=== PATIENT | female | born 1940 | race Caucasian/White ===

== ENCOUNTER 2017-05-12 14:58 | Inpatient (IN) | payer MEDICARE ==
[~2017-05-12] VITALS: Ht 165.1 cm; Wt 73.8 kg
[~2017-05-12 14:58] MED LIST: ACET-171 PO; ACET1TAB42 PO; ALBU8.5H2 INHALATION; ASPI-973 PO; ATOR10TA66 PO; BETA15OI4 TP; CALCIT PO; CHOL200047 PO; CLOB50FO8 TP; CYAN100017 SL; DILT120C10 PO; FOLI1TAB18 PO; FURO-129 PO; INFL100V IV; KEN1O TOP; LOSA25TA21 PO; METF500T3 PO; OMEP20CA11 PO; PRE20 PO; TRIA1TAB5 PO; [UNRECOGNIZED DRUG - CODE] SC
[2017-05-12 15:07] VITALS: BP 132/58; PULSE 97; RESP 16; O2SAT 98
--- NOTE | 2017-05-12 15:22 | ED.REPORT ---
HPI-Abd Pain F 40 and Over Date of Service May 12, 2017 ED Provider: Dr. Gibson Pt is a 77 y/o female w/ a hx of a-fib, NIDDM, HTN, GERD, hernia s/p repair, presenting to the ED c/o sharp gradually worsening mid-abdominal pain onset yesterday. She c/o associated nausea, vomiting x1 episode. Pt denies bloody/ tarry stool, hematemesis, fever, chills, CP, SOB, cough, dysuria. She has not passed gas or had a bowel movement today. She has had a periumbilical hernia repair previously. Nursing Notes Stated Complaint: UPPER ABDOMINAL PAIN Chief Complaint: Female Abdominal Pain Nursing Notes Reviewed: Yes Allergies: Coded Allergies: atenolol (Verified Allergy, Intermediate, TROUBLE BREATHING, 08/21/16) Penicillins (Verified Allergy, Mild, CAN NOT TAKE DUE TO CURRENT MED, ) lisinopril (Verified Allergy, Unknown, UNKNOWN, 08/21/16) Uncoded Allergies: SULFA (Allergy, Mild, CAN NOT TAKE DUE TO CURRENT MED., 07/28/14) Scheduled Albuterol HFA (Proair HFA) 8.5 Gm Hfa.aer.ad 2 PUFFS INHALATION Q4H Aspirin (Aspirin) 81 Mg Tablet 81 MG PO DAILY Atorvastatin Calcium (Atorvastatin Calcium) 10 Mg Tablet 10 MG PO QPM Calcium Citrate (Calcium Citrate) 250 Mg Tablet 500 MG PO BID Cholecalciferol (Vitamin D3) (Vitamin D3) 2,000 Unit Capsule 2,000 UNIT PO DAILY Cyanocobalamin (Vitamin B-12) (Vitamin B-12) 1,000 Mcg Tab.subl 1,000 MCG SL DAILY Diltiazem ER (Diltiazem ER) 120 Mg Cap.er.12h 120 MG PO BID Folic Acid (Folic Acid) 1 Mg Tablet 1 MG PO DAILY Infliximab (Remicade) 10 Mg/Ml Sdv 100 MG IV q8w Losartan Potassium (Losartan Potassium) 25 Mg Tablet 25 MG PO DAILY Metformin ER (Glucophage XR) 500 Mg Tablet 500 MG PO BID Omeprazole (Omeprazole) 20 Mg Capsule. 20 MG PO DAILY Prednisone (PredniSONE) 20 Mg Tablet 40 MG PO DAILY TAPER Prednisone (PredniSONE) 20 Mg Tablet 20 MG PO PRN Triamcinolone Acet (Triamcinolone Acetonide Ointment) 1 Applic/0.25 Gm Oint 60 APPLIC TOP BID Triamterene/HCTZ 75-50 mg (Triamterene/HCTZ 75-50 mg) 1 Each Tablet 1 EACH PO DAILY Scheduled PRN Acetaminophen (Acetaminophen) 500 Mg Tablet 500 MG PO Q6H PRN PRN For Pain Acetaminophen/Codeine 300-30mg (Acetaminophen/Codeine 300-30mg) 1 Each Tablet 1 TABLET PO BID PRN PRN Pain Betamethasone/Propylene Glyc (Betamethasone Dp Aug 0.05% Oin) 15 Gm Oint...g. 15 GM TP DIRECTED PRN PRN skin Clobetasol Propionate/Emoll (Clobetasol Emollnt 0.05% Foam) 50 Gm Foam 50 GM TP BID PRN PRN skin Furosemide (Lasix) 20 Mg Tablet 20 MG PO DAILY PRN PRN edema General Time Seen by MD: 15:21 Chief Complaint Abdominal pain Hx Obtained From: Patient, EMS Arrived By: Ambulance Sudden in Onset?: No Onset Occurred: Yesterday Symptom Duration: Since onset Progression since Onset: Constant Location: : Periumbilical Quality: Painful, Sharp Severity: Current: Moderate Severity: Maximum: Moderate Similar Sx Previous: No Past Medical History Past Medical History RA interstitial lung disease Anemia AVMs Hx of incarcerated incisional hernia s/p repair Atrial fibrillation GERD NIDDM Hypertension Past Surgical History Hernia repair Reports: Hysterectomy Smoking History Former Smoker Social History Alcohol Use: Denies alcohol use Ambulatory Status Independent Review of Systems Constitutional: Denies: Chills, Fever Respiratory: Denies: Non-productive cough, Shortness of breath Cardiovascular: Denies: Chest pain GI: Reports: Abdominal pain, Nausea, Vomiting, Denies: Bloody/tarry stool, Diarrhea, Hematemesis, Melena Female: Denies: Dysuria, Urinary frequency Complete sys rev & neg: except as marked. Physical Exam Vital Signs Vital Signs (First) Date Time Temp Pulse Resp B/P Pulse Ox O2 Delivery O2 Flow Rate FiO2 05/12/17 15:07 36.7 97 16 132/58 98 Room Air Initial VS: Reviewed, Vital signs normal Head / Eyes: Atraumatic, Normocephalic ENT: Mucous membranes moist, Conjunctiva normal Neck: Supple, Full range of motion Extremities: Vascular intact, Neuro intact Skin: Warm, Dry, No cyanosis Neurologic: Alert, Oriented, Nonfocal Psychiatric: Mood/affect normal, Behavior normal, Normal thought content General/Constitutional: Awake, Alert, No acute distress, Cooperative, Not toxic appearing Respiratory / Chest: Breath sounds NL, Breath sounds = bilat, No respiratory distress, No rales, No rhonchi, No wheezing Cardiovascular: Regular rhythm, Heart sounds NL, No murmurs, Peripheral circulation NL, Pulses = bilaterally Heart Rate / Rhythm: Positive: Tachycardia Periph CV / BP Differential: Positive: Peripheral pulses 2+ Abdomen: Atraumatic, Soft, No guarding, No rebound, No distention Bowel Sounds / Distention: Positive: Distention mild Moderately tender between epigastrium and umbilical region Back: Full range of motion, Painless range of motion Interpretation & Diagnostics Lab Results Interpretation Result Diagram: 05/12/17 1535 05/12/17 1535 Test 05/12/17 15:35 05/12/17 17:41 White Blood Count 7.4th/mm3 (3.8-10.1) Red Blood Count 3.38mil/mm3 (3.90-5.20) Hemoglobin 10.3g/dL (12.0-15.6) Hematocrit 31.9% (35.0-46.0) Mean Corpuscular Volume 94.4fL (81-100) Mean Corpuscular Hemoglobin 30.5pg (27.0-35.0) Mean Corpuscular Hemoglobin Concent 32.3% (32.0-37.0) Red Cell Distribution Width 16.3% (12.3-15.4) Platelet Count 202bil/L (150-400) Neutrophils (%) (Auto) 75.8% (40-74) Lymphocytes (%) (Auto) 9.5% (14-46) Monocytes (%) (Auto) 13.0% (4-12) Eosinophils (%) (Auto) 0.7% (0-5) Basophils (%) (Auto) 0.1% (0-3) Sodium Level 139mEq/L (134-144) Potassium Level 4.3mEq/L (3.5-5.2) Chloride Level 100mEq/L (97-108) Carbon Dioxide Level 22mmol/L (18-29) Blood Urea Nitrogen 44mg/dL (8-27) Creatinine 1.40mg/dL (0.57-1.00) Estimat Glomerular Filtration Rate 52mL/min (>59) Glucose Level 207mg/dL (60-99) Lactic Acid Level 1.5mmol/L (0.4-2.0) Calcium Level 9.5mg/dL (8.5-10.1) Magnesium Level 1.5mg/dL (1.6-2.6) Total Bilirubin 0.4mg/dL (0.0-1.2) Aspartate Amino Transf (AST/SGOT) 12U/L (0-50) Alanine Aminotransferase (ALT/SGPT) 10U/L (0-32) Alkaline Phosphatase 53U/L (25-165) Total Protein 7.1g/dL (6.4-8.4) Albumin 3.8g/dL (3.4-5.0) Lipase 30U/L (13-60) Hold Patel Top Tube Received (Received) Hold Urine Received (Received) CT Abd / Pelvis Interpretation IMPRESSION: High-grade small bowel obstruction pattern, with fluid in gas distention of the small bowel above the lower mid pelvis to up to 4.6 cm in diameter with a small amount of reactive free fluid in the perihepatic space and paracolic gutters, but no free air. The absence of an identifiable source of this obstruction statistically indicates either acquired or congenital adhesion as the underlying cause. Specifically, no small bowel mass, intussusception or volvulus is found. Given the extent of disease present surgical consultation likely is warranted at this time. 2 moderately large gallstones within the gallbladder lumen but no sign of obstruction of the bile ducts or inflammation of the gallbladder wall. Dictated by: Héctor Whitehead M.D. on 05/12/2017 at 17:15 Approved by: Héctor Whitehead M.D. on 05/12/2017 at 17:21 Study type: Abdominal CT IV contrast Interpretation / Wet Read by: Interpret - Radiologist Re-Eval/Medical Decision Med Decision/Clinical Course Small bowel obstruction. Will be admitted. Re-Evaluation/Progress : Time of Eval: 17:27 Re-Evaluation/Progress Note: Pt rechecked. Informed pt of need for admission due to SBO. Pt understands and agrees with plan for admission. All questions addressed. Consultation #1: Referral / Consult Name: Nile Awad MD Consulted With: Surgeon Call Returned at: 17:48 Rental Manager: Agrees with eval, Agrees with plan Note: Will consult during admission. Consultation #2: Referral / Consult Name: Lucero Sethi MD Consulted With: Hospitalist Call Returned at: 17:50 Rental Manager: Will see patient, Agrees with eval, Agrees with plan, Accepts admit Counseled Regarding: Diagnosis, Lab results, Need for admission Discharge & Departure Primary Impression: SBO (small bowel obstruction) Additional Impression: Cholelithiasis Cholelithiasis location: gallbladder Cholecystitis presence: without cholecystitis Biliary obstruction: without biliary obstruction Qualified Code : K80.20 - Calculus of gallbladder without cholecystitis without obstruction Disposition: ADMITTED TO HOSPITAL Discharge Condition All VS Reviewed: Yes Condition: Stable Referrals: Catrachita Oropeza (PCP) Scribe Attestation Portions of this note were transcribed by Devyn Bragg. I, Dr. Gibson, personally performed the history, physical exam and medical decision-making; I reviewed and confirmed the accuracy of the information in the transcribed note. copies to: Catrachita Oropeza Timothy S DO May 12, 2017 15:22 DEVYN BRAGG May 12, 2017 15:31
[2017-05-12 15:43] LABS: BASOPHILS % (AUTO) 0.1 % (0-3); EOSINOPHILS % (AUTO) 0.7 % (0-5); Mean Corpuscular Hemoglobin 30.5 pg (27.0-35.0); Mean Corpuscular Volume 94.4 fL (81-100); NEUTROPHILS % (AUTO) 75.8 % (40-74); Platelet Count 202 bil/L (150-400)
[2017-05-12] MEDS ORDERED: 0.9% Sodium Chloride 500 ML IV ONE (15:45)
[2017-05-12] MEDS ORDERED: Ondansetron 2 mg/mL 2 mL Inj IVPUSH PRN ×2 (15:45→17:45)
[2017-05-12 16:07] LABS: Magnesium 1.5 mg/dL (1.6-2.6)
--- NOTE | 2017-05-12 17:22 | DRSVH ---
PROCEDURE: CT ABDOMEN AND PELVIS WITH CONTRAST ([id number]) INDICATIONS: abd pain vomiting TECHNIQUE: After the administration of intravenous contrast, 5 mm thick sections acquired from the diaphragm to the symphysis. 5 mm coronal and sagittal reformats were acquired. For radiation dose reduction, the following was used: automated exposure control, adjustment of mA and/or kV according to patient siz e. COMPARISON: None. FINDINGS: Image quality: Excellent. ABDOMEN: Lung bases: Lung bases are abnormal, with a mild degree of fibrotic change and mild medial lung base bilateral traction bronchiectasis. Heart size is normal. Solid organs: Liver and spleen are normal in size and enhancement. There is mild perihepatic free f luid is seen anteriorly, superiorly Gallbladder contains at least 2 moderate size gallstones that are peripherally calcified and measure up to 1.4 cm in dimension. Biliary system is non dilated. Pancr eas enhances normally. No adrenal nodules. Kidneys demonstrate normal size and enhancement, without hydronephrosis. Peritoneum and bowel: Small bowel loops demonstrate mildly increased wall thickness and distended trina iber measuring up to 4.6 cm in maximal transverse dimension and this is best seen over the left mid t o lower abdomen and extending into the pelvis. No free air. Nodes and vessels: No retroperitoneal or mesenteric adenopathy by size criteria. Aorta and inferior vena cava are normal in size. Miscellaneous: No ventral hernias. PELVIS: Genitourinary: Bladder wall thickness is normal. Miscellaneous: No inguinal hernias or adenopathy. At the right lower quadrant there are small bowel loops that are collapsed, in contrast to the moderately distended small bowel loops more superiorly and in the left lower quadrant. There is feculent transformation of content within the distended dis josh small bowel at the midline of the lower pelvis. Beyond this area the pelvis portion of the small bowel appears collapsed. Bones: No suspicious bony lesions. No vertebral body compression fractures. IMPRESSION: High-grade small bowel obstruction pattern, with fluid in gas distention of the small bow el above the lower mid pelvis to up to 4.6 cm in diameter with a small amount of reactive free fluid in the perihepatic space and paracolic gutters, but no free air. The absence of an identifiable sour ce of this obstruction statistically indicates either acquired or congenital adhesion as the underlyi ng cause. Specifically, no small bowel mass, intussusception or volvulus is found. Given the extent of disease present surgical consultation likely is warranted at this time. 2 moderately large gallstones within the gallbladder lumen but no sign of obstruction of the bile mojgan ts or inflammation of the gallbladder wall. Dictated by: Héctor Whitehead M.D. on 05/12/2017 at 17:15 Approved by: Héctor Whitehead M.D. on 05/12/2017 at 17:21
[2017-05-12] MEDS ORDERED: 0.9% Sodium Chloride 1,000 ML IV SCH ×2 (17:40→20:45)
[2017-05-12] MEDS ORDERED: Alum-Mag Hydrox-Simeth 30 mL Suspension PO PRN (17:45)
[2017-05-12] MEDS ORDERED: Polyethylene Glycol (PEG) 17 Gm Powder PO PRN (17:45)
[2017-05-12 19:03] VITALS: BP 129/56; PULSE 102; RESP 16; O2SAT 98
--- NOTE | 2017-05-12 19:35 | NUR ---
Arrival to [facility] room 1007 at 1935
[2017-05-12 19:40] VITALS: BP 136/76; PULSE 99; RESP 16; O2SAT 95
[2017-05-12] MEDS ORDERED: Famotidine Inj 20 MG in IV Premix 1 EACH IV SCH (20:30)
[2017-05-12] MEDS ORDERED: Magnesium Sulf 2 Gm/50mL Water 2 GM in IV Premix 1 EACH IV ONE (20:45)
--- NOTE | 2017-05-12 21:35 | PCM.HPMED ---
Subjective Date of Service May 12, 2017 Primary Provider: Admitting Physician: Primary Care Physician: Catrachita Oropeza Attending Physician: Chief Complaint: Abdominal pain. History of Present Illness: Ms. Lily Nicole is a very pleasant 77 year old lady with past medical history of atrial fibrillation, Non insulin using diabetes, hypertension, Lichen planus , rheumatoid arthritis, GERD, umbilical hernia repair (2014), who presents to the [facility] Emergency Department with abdominal pain, onset roughly noon day before (05/11/17). 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 Shortly thereafter she experienced nausea and vomited, what appeared to be her meal from the night before. Since then she has intermittent sharp 10/10 abdominal pain, roughly over her epigastric area. She notes that movement and certain positions aggravate her pain. She has not passed gas since early AM 05/11/17. She denies fever, chills, syncope, chest pain, shortness of breath, dysuria, hematemesis, hematochezia, hematuria. OF note she reports starting Azithioprine about 3 weeks ago, and was told constipation was a side effect. In the ED patients vitals: T-36.7, HR-97, RR-16, BP-132/58, 98%RA. CT - IMPRESSION: High-grade small bowel obstruction pattern, with fluid in gas distention of the small bowel above the lower mid pelvis to up to 4.6 cm in diameter with a small amount of reactive free fluid in the perihepatic space and paracolic gutters, but no free air. The absence of an identifiable source of this obstruction statistically indicates either acquired or congenital adhesion as the underlying cause. Specifically, no small bowel mass, intussusception or volvulus is found. 2 moderately large gallstones within the gallbladder lumen but no sign of obstruction of the bile ducts or inflammation of the gallbladder wall. In the ED patient received: IV morphine, NS fluids, zofran. Dr. Awad with surgery was consulted. NG tube placed. Review of Systems: A comprehensive review of systems was conducted with the patient and found to be negative except as above in the History of Present Illness. Allergies Coded Allergies: atenolol (Verified Allergy, Intermediate, TROUBLE BREATHING, 08/21/16) Penicillins (Verified Allergy, Mild, CAN NOT TAKE DUE TO CURRENT MED, ) lisinopril (Verified Allergy, Unknown, UNKNOWN, 08/21/16) Uncoded Allergies: SULFA (Allergy, Mild, CAN NOT TAKE DUE TO CURRENT MED., 07/28/14) Home Medications Scheduled Albuterol HFA (Proair HFA) 8.5 Gm Hfa.aer.ad 2 PUFFS INHALATION Q4H Aspirin (Aspirin) 81 Mg Tablet 81 MG PO DAILY Atorvastatin Calcium (Atorvastatin Calcium) 10 Mg Tablet 10 MG PO QPM Calcium Citrate (Calcium Citrate) 250 Mg Tablet 500 MG PO BID Cholecalciferol (Vitamin D3) (Vitamin D3) 2,000 Unit Capsule 2,000 UNIT PO DAILY Cyanocobalamin (Vitamin B-12) (Vitamin B-12) 1,000 Mcg Tab.subl 1,000 MCG SL DAILY Diltiazem ER (Diltiazem ER) 120 Mg Cap.er.12h 120 MG PO BID Folic Acid (Folic Acid) 1 Mg Tablet 1 MG PO DAILY Infliximab (Remicade) 10 Mg/Ml Sdv 100 MG IV q8w Losartan Potassium (Losartan Potassium) 25 Mg Tablet 25 MG PO DAILY Metformin ER (Glucophage XR) 500 Mg Tablet 500 MG PO BID Omeprazole (Omeprazole) 20 Mg Capsule.dr 20 MG PO DAILY Prednisone (PredniSONE) 20 Mg Tablet 40 MG PO DAILY TAPER Prednisone (PredniSONE) 20 Mg Tablet 20 MG PO PRN Triamcinolone Acet (Triamcinolone Acetonide Ointment) 1 Applic/0.25 Gm Oint 60 APPLIC TOP BID Triamterene/HCTZ 75-50 mg (Triamterene/HCTZ 75-50 mg) 1 Each Tablet 1 EACH PO DAILY Scheduled PRN Acetaminophen (Acetaminophen) 500 Mg Tablet 500 MG PO Q6H PRN PRN For Pain Acetaminophen/Codeine 300-30mg (Acetaminophen/Codeine 300-30mg) 1 Each Tablet 1 TABLET PO BID PRN PRN Pain Betamethasone/Propylene Glyc (Betamethasone Dp Aug 0.05% Oin) 15 Gm Oint...g. 15 GM TP DIRECTED PRN PRN skin Clobetasol Propionate/Emoll (Clobetasol Emollnt 0.05% Foam) 50 Gm Foam 50 GM TP BID PRN PRN skin Furosemide (Lasix) 20 Mg Tablet 20 MG PO DAILY PRN PRN edema PMH RA interstitial lung disease Anemia AVMs Hx of incarcerated incisional hernia s/p repair Atrial fibrillation GERD NIDDM Hypertension Surgical History Hernia repair 2015 Hysterectomy 1975 Oophorectomy ~ 1981 Family History Mother - Rheumatoid Arthritis Social History Hx Alcohol Use: No Hx Substance Use: No Hx Tobacco Use: Yes Smoking Status: Former Smoker Exam Vital Signs Vital Sign - Last Date Time Temp Pulse Resp B/P Pulse Ox O2 Delivery O2 Flow Rate FiO2 05/12/17 15:07 36.7 97 16 132/58 98 Room Air Exam General: Elderly lady sitting in bed in no acute distress, well-developed, well- nourished, appropriately interactive HEENT: Normocephalic, atraumatic. External ears without defect. Pupils equal, round, and reactive to light and accommodation. Anicteric sclerae, moist conjunctivae, and no lid lag. Oropharynx free of erythema and cobble stoning with moist mucosa. Neck: Supple with full range of motion. No jugular venous distension. No bruits. No lymphadenopathy or thyromegaly. Cardiovascular: Regular rate and rhythm with no rubs, or gallops appreciated. 2- 3/6 moderate holosystolic murmur present. Pulmonary: Clear to auscultation bilaterally with no crackles, wheezes, or rhonchi. Normal respiratory effort with no use of accessory muscles. Abdomen: Bowel tones present. Soft, mildly tender to palpation. nondistended. No hepatosplenomegaly or masses appreciated. Extremities: No clubbing, cyanosis, edema, or lymphadenopathy appreciated. Skin: Normal temperature, turgor, and texture; various lichen planus present, ulcers, or subcutaneous nodules appreciated. Neurological: Cranial nerves grossly intact. Normal muscle strength, tone, and bulk. Reflexes, coordination, and sensory function within normal limits. No known gait impairment. Psychiatric: Normal mood and affect. Alert and oriented to person, place, and time. Lab and Diagnostics Result Diagram: 05/12/17 1535 05/12/17 1535 X-Rays, CTs and MRIs CT ABDOMEN AND PELVIS WITH CONTRAST IMPRESSION: High-grade small bowel obstruction pattern, with fluid in gas distention of the small bowel above the lower mid pelvis to up to 4.6 cm in diameter with a small amount of reactive free fluid in the perihepatic space and paracolic gutters, but no free air. The absence of an identifiable source of this obstruction statistically indicates either acquired or congenital adhesion as the underlying cause. Specifically, no small bowel mass, intussusception or volvulus is found. Given the extent of disease present surgical consultation likely is warranted at this time. 2 moderately large gallstones within the gallbladder lumen but no sign of obstruction of the bile ducts or inflammation of the gallbladder wall. Approved by: Héctor Whitehead M.D. on 05/12/2017 at 17:21 Assessment & Plan Ms. Lily Nicole is a very pleasant 77 year old lady with past medical history of atrial fibrillation, Non insulin using diabetes, hypertension, Lichen planus , rheumatoid arthritis, Interstitial lung, disease,GERD, umbilical hernia repair (2014), who presents to the [facility] Emergency Department with abdominal pain, onset roughly noon day before (05/11/17). CT shows high grade SBO. NG tube placed, surgery consulted. Converting PO meds to IV where appropriate. High Grade Small Bowel Obstruction. Present on admission. Active. - Likely 2nd to adhesion from prior surgery. - CT abdomen as above. - NG tube in place. - IV morphine and Zofran PRN. - NPO. - IV fluids NS @ 75 ml/hr. - GI prophylaxis with Famotidine. - Dr. Awad with Surgery consulted. Chronic conditions. Rheumatoid Arthritis - Continue home Prednisone 20 mg daily. IV Solu-Medrol substitute daily (16mg). - Remicade is q8W med. Not due at this time. History of Atrial Fibrillation, not on anticoagulation. Not present on admission. Active. - On home ASA, Will continue. - Continue home Diltiazem ER 120 mg BID when appropriate. - Tele ordered. Hypertension. - Continue home Losartan 25 mg Daily when appropriate. - Continue home Triamterene/HCTZ 75/50 mg 1 each daily when appropriate. - Continue home Furosemide 20 mg Daily when appropriate. Non Insulin Using Diabetes. - Holding home metformin 500 mg BID. Hyperlipidemia - Continue home Atorvastatin 10 mg PO HS when appropriate. GERD. - Holding home omeprazole 20 mg daily. Acetaminophen for mild pain when necessary. Bowel regimen Senna and MiraLAX scheduled and PRN. Zofran when necessary for nausea and vomiting. SubQ heparin held for now. SCDs in place. Social: Lives alone at [facility]. 3 Adult children live in the [facility] area. Ambulates without assistance. Full Code. High-risk medications: IV Morphine. Patient Status: Patient is admitted under inpatient status with expected length of stay greater than 2 midnights due to severity of presenting symptoms, risk of adverse event, and complexity of treatment plan. Pain Evaluation: Adequate Pain Control Resuscitation Status: CPR: Attempt Resuscitation CHICHO COPE DO May 12, 2017 17:53
[2017-05-12] MEDS ORDERED: Diltiazem 5 mg/mL 5 mL Inj IVPUSH PRN (22:50)
[2017-05-12] MEDS ORDERED: Labetalol 5 mg/mL 20 mL Inj IVPUSH PRN (22:55)
[2017-05-12 23:21] VITALS: PULSE 89
[2017-05-13 00:40] VITALS: BP 159/81; PULSE 88; RESP 18; O2SAT 98
--- NOTE | 2017-05-13 02:44 | CONS ---
[address] [id number] CONSULTATION REPORT PATIENT: SUDHEER TOLENTINO : 1940 MR#: [id number] ADMIT: 05/12/2017 JOB ID: [id number] DATE OF SERVICE: 05/12/2017 IDENTIFICATION AND CHIEF COMPLAINT: I have been asked to consult on this 77-year-old woman with a small bowel obstruction. HISTORY OF PRESENT ILLNESS: The patient presented to the emergency department with progressively worsening abdominal pain x24 hours. She has had associated nausea and vomiting, has not passed gas today, and has not had a bowel movement for 2-3 days. PAST SURGICAL HISTORY: Includes periumbilical hernia, as well as a hysterectomy and oophorectomy in the distant past. She has never had a previous small bowel obstruction. She did have extensive workup for GI blood loss in 2015 that was attributed to AV malformations and underwent photoablation. PAST MEDICAL HISTORY: 1. Atrial fibrillation. 2. Hypertension. 3. Rheumatoid arthritis. 4. GERD. 5. Interstitial lung disease. 6. Nbr-ymakyaq-quwwuthzj diabetes. MEDICATIONS: Per med list, they include: 1. Diltiazem for rate control. 2. Aspirin. 3. Prednisone, on taper. 4. Remicade. 5. Losartan. 6. No anticoagulation other than aspirin. ALLERGIES: 1. ATENOLOL 2. PENICILLINS. 3. LISINOPRIL. SOCIAL HISTORY: , ex-smoker, negative daily alcohol, lives alone, but does have adult children. FAMILY HISTORY: Noncontributory. REVIEW OF SYSTEMS: Per admission history and physical. PHYSICAL EXAMINATION: A slender woman in no acute distress. Vital signs show that she is afebrile. Pulse is in the high 90s. Blood pressure is within normal limits. Sclerae are clear. Neck: Supple. Lungs: Clear. Heart sounds are irregularly irregular. Her abdomen is soft, nontender, though a bit tympanitic and does have high-pitched bowel sounds with a few rushes and tinkles, but there are no groin hernias. There are no incisional hernias. Extremities without edema. LABORATORIES: Show white count of 7.4, hematocrit 32. Normal chemistries. Creatinine mildly elevated at 1.4. Glucose is mildly elevated at 207. Lactic acid is 1.5. LFTs and lipase are normal. IMAGING: I have reviewed her CAT scan, both the report and the films. I concur that she has at least two large gallstones in the gallbladder that appear asymptomatic and what appears to be a high-grade small bowel obstruction. IMPRESSION AND PLAN: A 77-year-old woman with moderate medical comorbidities who presents with bowel obstruction, likely adhesive disease. She is having a nasogastric tube placed immediately prior to me evaluating her. I do not think there is any indication for urgent surgery. We discussed natural history of bowel obstruction and my recommendation is for nasogastric tube decompression overnight and followup abdominal films in the morning. Depending on how she appears clinically in the morning, I may recommend surgical intervention.
--- NOTE | 2017-05-13 04:37 | NUR ---
Nurse Note NOC Shift Patient alert and oriented x4, able to communicate needs, denies feeling dizzy, gait steady. She denies SOB, chest pain or nausea but c/o mild abdominal tenderness which was tolerable to pt without medication. Pt is on continuos NG suction, clear drainage suctioned but later drainage with some blood. Pt reports she usually has some bleed on the tongue and tends to swallow the blood. MD notified of the blood tinged drainage, new lab orders obtained. No significant increase of bloody suctioned contents during the shift. Pt reports that she passed gas tonight; bowel tones positive. Pt received Mgso4 to replace mg, tolerated well. She is able to ambulate to the bathroom with standby assist.
[2017-05-13 06:10] VITALS: BP 167/74; PULSE 80; RESP 16; O2SAT 98
--- NOTE | 2017-05-13 06:21 | NUR ---
Xray Pt off unit for abdominal x ray
[2017-05-13 07:41] LABS: BASOPHILS % (AUTO) 0.2 % (0-3); EOSINOPHILS % (AUTO) 1.7 % (0-5); MONOCYTES % (AUTO) 10.9 % (4-12); Mean Corpuscular Hemoglobin 29.8 pg (27.0-35.0); Mean Corpuscular Volume 96.3 fL (81-100); NEUTROPHILS % (AUTO) 74.1 % (40-74); Platelet Count 161 bil/L (150-400)
--- NOTE | 2017-05-13 07:46 | DRSVH ---
PROCEDURE: X-RAY ACUTE ABDOMINAL SERIES ([id number]) INDICATIONS: SMALL BOWEL OBSTRUCTION TECHNIQUE: One view chest and two views of the abdomen were acquired. COMPARISON: CT from 05/12/2017. FINDINGS: Surgical changes and devices: None. Chest: Left basilar atelectasis or scarring. Otherwise the lungs are clear. No definite pleural effus ions. No pleural effusions. No pneumoperitoneum. Abdomen: Enteric tube with tip in the proximal stomach. Bowel gas pattern is improved and now nonobs tructive. Cholelithiasis. Vicarious excretion of contrast within the bladder. Visualized solid organ contours appear normal. Bones: No suspicious bony lesions. IMPRESSION: 1. Given differences in technique, the patient's bowel gas pattern is improved with no plain film rad iographic evidence of obstruction. 2. Cholelithiasis. Dictated by: Charly Beckman M.D. on 05/13/2017 at 7:41 Approved by: Charly Beckman M.D. on 05/13/2017 at 7:44
[2017-05-13 08:02] LABS: INR 0.94 ratio
[2017-05-13 08:13] VITALS: BP 135/71; PULSE 82; RESP 18; O2SAT 97
[2017-05-13] MEDS ORDERED: MethylprednisoLONE Sodium Succinate 40 mg/mL Inj IVPUSH SCH (08:30)
--- NOTE | 2017-05-13 08:40 | PROG NOTE ---
[address] [address] PROGRESS NOTE PATIENT: SUDHEER TOLENTINO : 1940 MR#: [id number] ADMIT: 05/12/2017 JOB ID: [id number] DATE: 05/13/2017 SUBJECTIVE: The patient remains afebrile, stable vital signs. Nasogastric tube has put out an unclear amount as it is not charted. However, she only appears to have about 200 cc of bilious fluid in her suction canister. She tells me she feels much better, is passing gas, but has not had a bowel movement. PHYSICAL EXAMINATION: Her abdomen is soft, less distended and tympanic than yesterday. Normal bowel tones. DIAGNOSTIC STUDIES: X-rays are markedly improved with no sign of small bowel obstruction. IMPRESSION AND PLAN: Small bowel obstruction resolved. We will take out her NG tube and start her on full liquids. She is hoping to be able to go home today, and I think if she does have a bowel movement that would not be unreasonable.
--- NOTE | 2017-05-13 09:24 | NUR ---
Social work - Initial assessment/ Readiness for d/c Lily Nicole is a 77 year old female admitted for Small Bowel Obstruction. EMR reviewed: Pt has MCR and AARP. PCP is MARISSA Ferrell. No DPOA on file, it has been completed and daughter is DPOA. SW requested copy for chart. No HH or SNF history, No LTC or VA benefits. Readmit score is 2. See attached CM initial assessment. ELEMENTARY SCHOOL TUTOR met with pt - introduced D/C planning and explained SW role. Pt lives at home alone. Pt's capacity for self-care assessed. Pt is independent at baseline with ADLs and self-care. Pt uses no DME at baseline. Pt continues to drive. Pt provided with discharge planning checklist, phone number and plan on whiteboard. Pt to d/c home with her family to transport via POV. No d/c needs identified at this time, SW will continue to follow. Assessment: Pt who is independent at baseline. Plan: Pt to d/c home with her family to transport via POV. No d/c needs identified at this time, SW will continue to follow. SANDEEP Hong Addendum: 05/13/17 at 0927 by BRAULIO SUAREZ Amended: Links added.
[2017-05-13 10:15] VITALS: PULSE 83
[2017-05-13 13:18] VITALS: BP 125/71; PULSE 83; RESP 18; O2SAT 98
--- NOTE | 2017-05-13 15:09 | PCM.DIMED ---
Discharge Instructions Date of Service May 13, 2017 Dates of Hospitalization May 12, 2017 at 18:01 Discharge Diagnosis Discharge Diagnosis Small bowel obstruction Diet Discharge Diet: Other (as directed) Activity Discharge Activity: No restrictions Call your provider Call your provider for: Vomitting Patient Instructions Patient Instructions You were hospitalized with small bowel obstruction, resolved with conservative treatment. Please follow up with your doctor in 2weeks for follow up. Please slowly advance your diet, monitor your symptoms Follow-up Provider: Catrachita Oropeza Follow-up with PCP in: 1 week Lucreo Sethi MD May 13, 2017 15:09
--- NOTE | 2017-05-13 15:44 | NUR ---
Social Work- Discharge Data: EMR reviewed. Pt to d/c today, d/c orders are active. Pt to d/c home but has been having trouble contacting her family. Pt wants to call a taxi for transport home. No additional d/c needs. Assessment: Pt who is independent at baseline. Plan: Pt to d/c home either via private pay taxi or via family. No additional discharge planning needs. SANDEEP Hong
--- NOTE | 2017-05-13 15:47 | PCM.DC.MED ---
Discharge Summary Date of Service May 13, 2017 Dates of Hospitalization Date of Hospital Admission May 12, 2017 at 18:01 Date of Discharge: May 13, 2017 Providers: Admitting Physician: Lucero Sethi MD Primary Care Physician: Catrachita Oropeza Attending Physician: Lucero Sethi MD Diagnosis at Time of Discharge Diagnosis at Time of Discharge acute dx Small bowel obstruction chronic dx Rheumatoid Arthritis History of Atrial Fibrillation, Hypertension. Non Insulin Using Diabetes. Hyperlipidemia GERD Consultations General surgery Dr. Awad Procedures XRay, CTs & MRIs CT ABDOMEN AND PELVIS WITH CONTRAST IMPRESSION: High-grade small bowel obstruction pattern, with fluid in gas distention of the small bowel above the lower mid pelvis to up to 4.6 cm in diameter with a small amount of reactive free fluid in the perihepatic space and paracolic gutters, but no free air. The absence of an identifiable source of this obstruction statistically indicates either acquired or congenital adhesion as the underlying cause. Specifically, no small bowel mass, intussusception or volvulus is found. Given the extent of disease present surgical consultation likely is warranted at this time. 2 moderately large gallstones within the gallbladder lumen but no sign of obstruction of the bile ducts or inflammation of the gallbladder wall. Approved by: Hétcor Whitehead M.D. on 05/12/2017 at 17:21 Brief History HPI obtained by on 05/12 Ms. Lily Nicole is a very pleasant 77 year old lady with past medical history of atrial fibrillation, Non insulin using diabetes, hypertension, Lichen planus , rheumatoid arthritis, GERD, umbilical hernia repair (2014), who presents to the [facility] Emergency Department with abdominal pain, onset roughly noon day before (05/11/17). 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 Shortly thereafter she experienced nausea and vomited, what appeared to be her meal from the night before. Since then she has intermittent sharp 10/10 abdominal pain, roughly over her epigastric area. She notes that movement and certain positions aggravate her pain. She has not passed gas since early AM 05/11/17. She denies fever, chills, syncope, chest pain, shortness of breath, dysuria, hematemesis, hematochezia, hematuria. OF note she reports starting Azithioprine about 3 weeks ago, and was told constipation was a side effect. In the ED patients vitals: T-36.7, HR-97, RR-16, BP-132/58, 98%RA. CT - IMPRESSION: High-grade small bowel obstruction pattern, with fluid in gas distention of the small bowel above the lower mid pelvis to up to 4.6 cm in diameter with a small amount of reactive free fluid in the perihepatic space and paracolic gutters, but no free air. The absence of an identifiable source of this obstruction statistically indicates either acquired or congenital adhesion as the underlying cause. Specifically, no small bowel mass, intussusception or volvulus is found. 2 moderately large gallstones within the gallbladder lumen but no sign of obstruction of the bile ducts or inflammation of the gallbladder wall. In the ED patient received: IV morphine, NS fluids, zofran. Dr. Awad with surgery was consulted. NG tube placed. Hospital Course Ms. Lily Nicole is a very pleasant 77 year old lady with past medical history of atrial fibrillation, Non insulin using diabetes, hypertension, Lichen planus , rheumatoid arthritis, Interstitial lung, disease,GERD, umbilical hernia repair (2014), who presents to the [facility] Emergency Department with abdominal pain, onset roughly noon day before (05/11/17). CT shows high grade SBO. NG tube placed, surgery consulted. Converting PO meds to IV where appropriate. Patient was admitted with high-grade small bowel obstruction likely in the setting of previous surgery. Nasogastric tube was placed in the emergency room. Patient's symptoms gradually resolved. Follow-up abdominal x-ray showed resolution of SBO. Patient also tolerated diet well without any symptoms. As per Dr. Awad's recommendation, patient safely was discharged home High Grade Small Bowel Obstruction. Present on admission. Active. - Likely 2nd to adhesion from prior surgery. - CT abdomen as above. - NG tube in place. - IV morphine and Zofran PRN. - NPO. - IV fluids NS @ 75 ml/hr. - GI prophylaxis with Famotidine. - Dr. Awad with Surgery consulted. Chronic conditions. Rheumatoid Arthritis - Continue home Prednisone 20 mg daily. IV Solu-Medrol substitute daily (16mg). - Remicade is q8W med. Not due at this time. History of Atrial Fibrillation, not on anticoagulation. Not present on admission. Active. - On home ASA, Will continue. - Continue home Diltiazem ER 120 mg BID when appropriate. - Tele ordered. Hypertension. - Continue home Losartan 25 mg Daily when appropriate. - Continue home Triamterene/HCTZ 75/50 mg 1 each daily when appropriate. - Continue home Furosemide 20 mg Daily when appropriate. Non Insulin Using Diabetes. - Holding home metformin 500 mg BID. Hyperlipidemia - Continue home Atorvastatin 10 mg PO HS when appropriate. GERD. - Holding home omeprazole 20 mg daily. Acetaminophen for mild pain when necessary. Bowel regimen Senna and MiraLAX scheduled and PRN. Zofran when necessary for nausea and vomiting. SubQ heparin held for now. SCDs in place. Social: Lives alone [facility]. 3 Adult children live in the [facility] area. Ambulates without assistance. Full Code. High-risk medications: IV Morphine. Patient Status: Patient is admitted under inpatient status with expected length of stay greater than 2 midnights due to severity of presenting symptoms, risk of adverse event, and complexity of treatment plan. Exam Vital Signs (Last) Date Time Temp Pulse Resp B/P Pulse Ox O2 Delivery O2 Flow Rate FiO2 05/13/17 13:18 36.7 83 18 125/71 98 Room Air Exam Patient was examined on the day of discharge Test 05/12/17 15:35 05/12/17 17:41 05/13/17 07:25 Lactic Acid Level 1.5mmol/L (0.4-2.0) Magnesium Level 1.5mg/dL (1.6-2.6) Lipase 30U/L (13-60) Hold Patel Top Tube Received (Received) Hold Urine Received (Received) White Blood Count 4.0th/mm3 (3.8-10.1) Red Blood Count 2.99mil/mm3 (3.90-5.20) Hemoglobin 8.9g/dL (12.0-15.6) Hematocrit 28.8% (35.0-46.0) Mean Corpuscular Volume 96.3fL (81-100) Mean Corpuscular Hemoglobin 29.8pg (27.0-35.0) Mean Corpuscular Hemoglobin Concent 30.9% (32.0-37.0) Red Cell Distribution Width 16.5% (12.3-15.4) Platelet Count 161bil/L (150-400) Neutrophils (%) (Auto) 74.1% (40-74) Lymphocytes (%) (Auto) 12.6% (14-46) Monocytes (%) (Auto) 10.9% (4-12) Eosinophils (%) (Auto) 1.7% (0-5) Basophils (%) (Auto) 0.2% (0-3) Prothrombin Time 10.0sec (8.1-12.5) Prothromb Time International Ratio 0.94ratio Sodium Level 141mEq/L (134-144) Potassium Level 3.9mEq/L (3.5-5.2) Chloride Level 103mEq/L (97-108) Carbon Dioxide Level 24mmol/L (18-29) Blood Urea Nitrogen 38mg/dL (8-27) Creatinine 1.25mg/dL (0.57-1.00) Estimat Glomerular Filtration Rate 60mL/min (>59) Glucose Level 163mg/dL (60-99) Calcium Level 8.8mg/dL (8.5-10.1) Total Bilirubin 0.3mg/dL (0.0-1.2) Aspartate Amino Transf (AST/SGOT) 11U/L (0-50) Alanine Aminotransferase (ALT/SGPT) 9U/L (0-32) Alkaline Phosphatase 48U/L (25-165) Total Protein 6.1g/dL (6.4-8.4) Albumin 3.5g/dL (3.4-5.0) Discharge Medications Discharge Medications Albuterol HFA (Proair HFA) 8.5 Gm Hfa.aer.ad 2 PUFFS INHALATION Q4H (Reported) Aspirin (Aspirin) 81 Mg Tablet 81 MG PO DAILY (Reported) Atorvastatin Calcium (Atorvastatin Calcium) 10 Mg Tablet 10 MG PO QPM (Reported ) Calcium Citrate (Calcium Citrate) 250 Mg Tablet 500 MG PO BID (Reported) Cholecalciferol (Vitamin D3) (Vitamin D3) 2,000 Unit Capsule 2,000 UNIT PO DAILY (Reported) Cyanocobalamin (Vitamin B-12) (Vitamin B-12) 1,000 Mcg Tab.subl 1,000 MCG SL DAILY (Reported) Diltiazem ER (Diltiazem ER) 120 Mg Cap.er.12h 120 MG PO BID (Reported) Folic Acid (Folic Acid) 1 Mg Tablet 1 MG PO DAILY (Reported) Infliximab (Remicade) 10 Mg/Ml Sdv 100 MG IV q8w (Reported) Losartan Potassium (Losartan Potassium) 25 Mg Tablet 25 MG PO DAILY (Reported) Metformin ER (Glucophage XR) 500 Mg Tablet 500 MG PO BID (Reported) Omeprazole (Omeprazole) 20 Mg Capsule.dr 20 MG PO DAILY (Reported) Prednisone (PredniSONE) 20 Mg Tablet 40 MG PO DAILY (Reported) TAPER Prednisone (PredniSONE) 20 Mg Tablet 20 MG PO PRN (Reported) Triamcinolone Acet (Triamcinolone Acetonide Ointment) 1 Applic/0.25 Gm Oint 60 APPLIC TOP BID (Reported) Triamterene/HCTZ 75-50 mg (Triamterene/HCTZ 75-50 mg) 1 Each Tablet 1 EACH PO DAILY (Reported) As needed Acetaminophen (Acetaminophen) 500 Mg Tablet 500 MG PO Q6H PRN PRN For Pain ( Reported) Acetaminophen/Codeine 300-30mg (Acetaminophen/Codeine 300-30mg) 1 Each Tablet 1 TABLET PO BID PRN PRN Pain (Reported) Betamethasone/Propylene Glyc (Betamethasone Dp Aug 0.05% Oin) 15 Gm Oint...g. 15 GM TP DIRECTED PRN PRN skin (Reported) Clobetasol Propionate/Emoll (Clobetasol Emollnt 0.05% Foam) 50 Gm Foam 50 GM TP BID PRN PRN skin (Reported) Furosemide (Lasix) 20 Mg Tablet 20 MG PO DAILY PRN PRN edema (Reported) Durable Medical Equipment Blood-Glucose Control, Normal (Truetest Glucose Control) 1 Each Each 1 STRIP SC BID (Reported) (DME) Followup Plan Disposition: home Discharge Diet: Other (as directed) Discharge Activity: No restrictions Patient Instructions You were hospitalized with small bowel obstruction, resolved with conservative treatment. Please follow up with your doctor in 2weeks for follow up. Please slowly advance your diet, monitor your symptoms Follow-up Provider: Catrachita Oropeza Follow-up with PCP in: 1 week Time spent 65min Lucero Sethi MD May 13, 2017 15:47
--- NOTE | 2017-05-13 16:09 | NUR ---
Discharge Patient discharged home. IV DC'd and intact. Tele DC'd. No dressing. Discharge instructions given to follow up with PCP in two weeks. No RX sent with patient. Patient encouraged to increase fluid intake. Patient gathered all belongings. FISHERMAN HELPER escorted patient out via W/C.
== END 2017-05-13 16:14 | disposition home or self-care (01) | DRG 390 ==
LOC: EDBD 14:58 → EDUNIT# 14:58 → SED 14:58 → OSC 18:01
PROVIDERS: ADMIT Internal Medicine; ATTEND Internal Medicine
DX: K56.5 Intestinal adhesions [bands] with obstruction (postinfection) (principal); M06.9 Rheumatoid arthritis, unspecified; I48.91 Unspecified atrial fibrillation; I10 Essential (primary) hypertension; E11.9 Type 2 diabetes mellitus without complications; E78.5 Hyperlipidemia, unspecified; K21.9 Gastro-esophageal reflux disease without esophagitis; Z79.84 Long term (current) use of oral hypoglycemic drugs; Z87.891 Personal history of nicotine dependence; K80.20 Calculus of gallbladder without cholecystitis without obstruction